=== PATIENT | female | born 1990 | race Caucasian/White ===

== ENCOUNTER 2022-03-01 18:28 | Emergency (ER) | payer BC, SELFPAY ==
[2022-03-01] VITALS (15 sets, daily range): BP systolic 98–133; BP diastolic 63–83; PULSE 53–70; RESP 12–14; O2SAT 95–100; BMI 30.1
--- NOTE | 2022-03-01 19:25 | ED.GENADULT ---
HPI - General Adult General Chief complaint: Chest Pain Stated complaint: Chest Pain Time Seen by Provider: 03/01/22 18:34 History of Present Illness HPI narrative: This 31-year-old female comes in reporting some parasternal chest discomfort over the past few days. She reports some generalized fatigue and does not feel quite right. She states that she has lost about 30 lb in the last month but has not really weighed herself. This has been more less an intentional weight loss as she has cut out sugars and other foods that are not necessary. She states she is eating less and she is running more frequently. She does not report any nausea, vomiting, shortness of breath, or diaphoresis. She does report some family history of heart disease in her extended family. 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 She states that she does have some asthma symptoms and occasionally uses an albuterol inhaler. Related Data Home Medications Medication Instructions Recorded Confirmed albuterol 90 mcg/actuation aerosol mcg inhalation PRN 03/01/22 inhaler bupropion HCl 100 mg tablet 150 mg PO DAILY 03/01/22 03/01/22 sertraline 100 mg tablet 50 mg PO DAILY 03/01/22 03/01/22 Allergies Allergy/AdvReac Type Severity Reaction Status Date / Time mouse protein Allergy Severe Anaphylaxis Verified 03/01/22 18:45 guinea pig Allergy Severe Anaphylaxis Uncoded 03/01/22 18:45 rats Allergy Severe Anaphylaxis Uncoded 03/01/22 18:45 Review of Systems Status of ROS: Reports: 10 or more systems reviewed and unremarkable except as noted in History and below Narrative: Constitutional: No fevers, no weight gain or loss. Eyes: No discharge. No vision changes. HENT: No congestion, no sore throat, no ear pain. Cardiovascular: Occasional palpitations. Respiratory: No shortness of breath, no wheezes, no cough. Gastrointestinal: No abdominal pain, no vomiting, no diarrhea. Genitourinary: No dysuria, no hematuria. Musculoskeletal: Normal range of motion. Skin: No rashes, no pruritis. Neurological: No dizziness, weakness, sensory change, speech change. Endo/Heme/Allergies: No bruising or bleeding. No polydipsia. Pysch: no suicidality, no anxiety, no insomnia. All other systems reviewed and are negative. PFSH PFSH Social History Smoking Status: Never smoker Do you use any of these nicotine containing products: None Second hand tobacco smoke exposure: No How often do you have a drink containing alcohol: never AUDIT-C Alcohol total score: 0 Non-prescribed substance use: former substance user Exam Narrative: Exam Narrative: Constitutional: Well-developed, well-nourished, no acute distress. HEENT: Normocephalic, atraumatic. Neck: Normal range of motion. Nontender. Supple. Heart: Regular. No murmurs. Normal rate. Intact distal pulses. Lungs: Clear to auscultation. No wheezes, rhonchi, or rales. Chest: She expresses distinct discomfort when palpating along the sternal border in her lower anterior chest. This pain is also reproducible when taking a deep breath. Abdomen: Normal bowel sounds. Nontender. No rebound tenderness. Genitalia: Deferred. Back: No midline tenderness. Normal range of motion. Extremities: Normal range of motion. No injury. Skin: Intact. No rash. Warm. No erythema or pallor. Neurologic: No altered sensation. No weakness. Alert and oriented. Psychiatric: No suicidality. No anxiety or depression. No insomnia. Nursing notes and vitals signs are reviewed. Const: Vital Signs, click to edit/add: Vital Signs - 24 hr 03/01/22 18:39 03/01/22 20:02 03/01/22 20:05 Pulse Rate 65 Pulse Rate [Right Pulse Oximeter] 67 Respiratory Rate 14 Blood Pressure 121/82 Blood Pressure [Le ft Upper Arm] 133/83 Pulse Oximetry 98 98 Oxygen Delivery Me thod Room Air 03/01/22 20:15 03/01/22 19:00 03/01/22 20:30 Pulse Rate 65 69 Pulse Rate [Right Pulse Oximeter] 61 Respiratory Rate 12 Blood Pressure Blood Pressure [Le ft Upper Arm] 115/72 Pulse Oximetry 96 98 95 Oxygen Delivery Me thod Room Air 03/01/22 20:31 03/01/22 20:45 03/01/22 21:00 Pulse Rate 65 67 53 L Pulse Rate [Right Pulse Oximeter] Respiratory Rate Blood Pressure 114/73 Blood Pressure [Le ft Upper Arm] Pulse Oximetry 99 100 98 Oxygen Delivery Me thod 03/01/22 19:30 03/01/22 20:00 Pulse Rate Pulse Rate [Right Pulse Oximeter] 60 68 Respiratory Rate 14 12 Blood Pressure Blood Pressure [Le ft Upper Arm] 110/75 121/82 Pulse Oximetry 98 97 Oxygen Delivery Me thod Room Air Room Air Course Vital Signs Vital signs: Initial Vital Signs Pulse Rate 67 03/01/22 18:39 Pulse Rhythm 03/01/22 18:39 Pulse Strength 3+ Normal 03/01/22 18:39 Respiratory Rate 14 03/01/22 18:39 Blood Pressure 133/83 03/01/22 18:39 Blood Pressure Mean 99 03/01/22 18:39 Blood Pressure Position Supine 03/01/22 18:39 Pulse Oximetry 98 03/01/22 18:39 Oxygen Delivery Method 03/01/22 18:39 Vital Signs Pulse Rate 67 03/01/22 18:39 Respiratory Rate 14 03/01/22 18:39 Blood Pressure 133/83 03/01/22 18:39 Pulse Oximetry 98 03/01/22 18:39 Oxygen Delivery Method 03/01/22 18:39 Pulse Rate 53 L 03/01/22 21:00 Respiratory Rate 12 03/01/22 20:00 Blood Pressure 114/73 03/01/22 20:31 Pulse Oximetry 98 03/01/22 21:00 Oxygen Delivery Method 03/01/22 20:00 Medical Decision Making MDM Narrative Medical decision making narrative: This patient comes in reporting reproducible parasternal chest discomfort with palpation and deep breathing. She has some generalized malaise and reports some intentional weight loss over the last month or so. She arrives with normal vital signs. EKG shows normal sinus rhythm without any abnormalities. An IV was established where she received a L of normal saline. Lab results returned with normal findings. This patient's discomfort is likely related to chest wall pain or costal chondritis. She received a rib belt and a prescription for Toradol. A return to work note is also provided. Lab Data Labs: Lab Results 03/01/22 03/01/22 03/01/22 Range/Units 19:25 19:25 19:50 WBC 7.53 (4.50-11.00) K/uL RBC 4.50 (4.00-5.20) m/uL Hgb 13.1 (12.0-16.0) gm/dL Hct 39.4 (33.0-51.0) % MCV 88 (80-100) fL MCH 29 (26-34) pg MCHC 33 (32-36) gm/dL RDW Coeff of Pollo 12.0 (11.5-15.5) % Plt Count 331 (140-440) K/uL Neut % (Auto) 68.0 (42.0-72.0) % Lymph % (Auto) 23.1 (20-44) % Duchesne % (Auto) 6.2 (0.0-11.0) % Eos % (Auto) 2.3 (0.0-7.0) % Baso % (Auto) 0.3 (0.0-3.0) % Neut # (Auto) 5.12 (1.7-7.0) K/uL Lymph # (Auto) 1.74 (0.90-2.90) K/uL Duchesne # (Auto) 0.50 (0.00-0.90) K/UL Eos # (Auto) 0.17 (0.00-0.50) K/uL Baso # (Auto) 0.02 (0.00-0.30) K/uL Abs Immat Gran (auto) 0.01 (0.00-0.30) K/uL Imm/Tot Granulo (auto) 0.1 % Sodium 139 (135-149) mmol/L Potassium 3.8 (3.6-5.1) mmol/L Chloride 103 (96-114) mmol/L Carbon Dioxide 25 (20-32) mmol/L BUN 16 (5-24) mg/dL Creatinine 0.6 (0.5-1.5) mg/dL Estimated Creat Clear 110.32 Estimated GFR 121 ml/min Glucose 84 (60-115) mg/dL Calcium 9.4 (8.4-10.6) mg/dL TSH 1.400 (0.270-4.20) uIU/mL SARS-CoV-2 (PCR) (Negative) Influenza Type A (PCR) (Negative) Influenza Type B (PCR) (Negative) RSV (PCR) (Negative) Group A Strep DNA (Not Detectd) 03/01/22 03/01/22 Range/Units 20:31 20:31 WBC (4.50-11.00) K/uL RBC (4.00-5.20) m/uL Hgb (12.0-16.0) gm/dL Hct (33.0-51.0) % MCV (80-100) fL MCH (26-34) pg MCHC (32-36) gm/dL RDW Coeff of Pollo (11.5-15.5) % Plt Count (140-440) K/uL Neut % (Auto) (42.0-72.0) % Lymph % (Auto) (20-44) % Duchesne % (Auto) (0.0-11.0) % Eos % (Auto) (0.0-7.0) % Baso % (Auto) (0.0-3.0) % Neut # (Auto) (1.7-7.0) K/uL Lymph # (Auto) (0.90-2.90) K/uL Duchesne # (Auto) (0.00-0.90) K/UL Eos # (Auto) (0.00-0.50) K/uL Baso # (Auto) (0.00-0.30) K/uL Abs Immat Gran (auto) (0.00-0.30) K/uL Imm/Tot Granulo (auto) % Sodium (135-149) mmol/L Potassium (3.6-5.1) mmol/L Chloride (96-114) mmol/L Carbon Dioxide (20-32) mmol/L BUN (5-24) mg/dL Creatinine (0.5-1.5) mg/dL Estimated Creat Clear Estimated GFR ml/min Glucose (60-115) mg/dL Calcium (8.4-10.6) mg/dL TSH (0.270-4.20) uIU/mL SARS-CoV-2 (PCR) Negative SARS-CoV-2 (Negative) Influenza Type A (PCR) Negative PCR FLU A (Negative) Influenza Type B (PCR) Negative PCR FLU B (Negative) RSV (PCR) Negative PCR RSV (Negative) Group A Strep DNA NOT DETECTED (Not Detectd) ECG Data Attestation: I personally reviewed and interpreted this ECG as follows: Interpretation: Normal sinus rhythm. Rate is 65 beats per minute. There are no specific ST or T-wave abnormalities. Discharge Plan Discharge Clinical Impression: Chest wall pain Patient Disposition: Home, Self-Care Condition: Stable Additional Instructions: Take medication as needed and indicated. Follow up with MD or return if worsening. Prescriptions: No Action bupropion HCl 100 mg tablet 150 mg PO DAILY sertraline 100 mg tablet 50 mg PO DAILY albuterol 90 mcg/actuation aerosol inhalation PRN Follow Up/Referrals: Provider,Not a Local [Primary Care Provider] - Stand Alone Forms: [employer] Info Instructions
[2022-03-01] MEDS: 0.9 % SODIUM CHLORIDE 1000 ml 1,000 ML IV (19:58)
[2022-03-01 20:05] LABS: Basophils Absolute Auto 0.02 K/uL (0.00-0.30); Basophils Percent Auto 0.3 % (0.0-3.0); Eosinophils Absolute Auto 0.17 K/uL (0.00-0.50); Eosinophils Percent Auto 2.3 % (0.0-7.0); Hematocrit 39.4 % (33.0-51.0); Hemoglobin* 13.1 gm/dL (12.0-16.0); Immature Granulocytes Abs Auto 0.01 K/uL (0.00-0.30); Immature Granulocytes Pct Auto 0.1 %; Lymphocytes Absolute Auto 1.74 K/uL (0.90-2.90); Lymphocytes Percent Auto 23.1 % (20-44); Mean Corpuscular HGB Conc 33 gm/dL (32-36); Mean Corpuscular Hemoglobin 29 pg (26-34); Mean Corpuscular Volume 88 fL (80-100); Monocytes Percent Auto 6.2 % (0.0-11.0); Neutrophils Absolute Auto 5.12 K/uL (1.7-7.0); Platelet Count* 331 K/uL (140-440); White Blood Count* 7.53 K/uL (4.50-11.00)
[2022-03-01 20:07] LABS: Slide Review Reflex No
[2022-03-01 20:29] LABS: Chloride* 103 mmol/L (96-114); Sodium* 139 mmol/L (135-149)
[2022-03-01 20:30] LABS: Potassium* 3.8 mmol/L (3.6-5.1)
--- NOTE | 2022-03-01 20:30 | ED.NURSE ---
Pt states worries about COVID and strep. Pt now states her throat was hurting yesterday and now hurting. Pt also states her work will ask for COVID/strep results to go back to work. updated.
[2022-03-01 20:32] LABS: Carbon Dioxide* 25 mmol/L (20-32); Creatinine* 0.6 mg/dL (0.5-1.5); Est. Creatinine Clearance* 110.32; Estimated Glomerular Filt Rate 121 ml/min
[2022-03-01 20:33] LABS: Blood Urea Nitrogen* 16 mg/dL (5-24); Calcium* 9.4 mg/dL (8.4-10.6); Glucose* 84 mg/dL (60-115)
[2022-03-01 21:10] LABS: Strep A DNA Probe* NOT DETECTED (Not Detectd)
[2022-03-01 21:23] LABS: PCR FLU A Negative PCR FLU A (Negative); PCR FLU B Negative PCR FLU B (Negative); PCR RSV Negative PCR RSV (Negative); SARS PCR* Negative SARS-CoV-2 (Negative)
== END 2022-03-01 22:05 | disposition home or self-care (01) ==
PROVIDERS: Emergency Provider Emergency Medicine Emergency Medical Services
DX: R07.89 Other chest pain (principal)
CPT/HCPCS: 36415; 80048; 84443; 85025; 87502; 87634; 87635; 87651; 93005; 96360; 99284; J7030